=== PATIENT | male | born 1990 | race Caucasian/White ===

== ENCOUNTER → 2017-07-01 | Emergency (ER) | payer OTHER ==
[~2017-07-01] VITALS: Ht 177.8 cm; Wt 136.1 kg
[~2017-07-01] MED LIST: ZITHROMAX1 G/PKT
== END | disposition home or self-care (01) ==
LOC: ER 12:03
DX: S13.4XXA Sprain of ligaments of cervical spine, initial encounter (principal); V49.9XXA Car occupant (driver) (passenger) injured in unspecified traffic accident, initial encounter; Y93.89 Activity, other specified; Y92.488 Other paved roadways as the place of occurrence of the external cause; Y99.8 Other external cause status

== ENCOUNTER 2021-06-20 00:28 | Emergency (ER) | payer OTHER ==
[~2021-06-20] VITALS: Ht 177.8 cm; Wt 124.7 kg
[2021-06-20] MEDS ORDERED: ZOFRAN8 MG PO ×2 (05:11→05:12)
[2021-06-20] MEDS ORDERED: PEPCID40 MG PO (05:11)
== END 2021-06-20 05:18 ==
LOC: ER 00:28
DX: K29.70 Gastritis, unspecified, without bleeding (principal); R50.9 Fever, unspecified; Z20.822 Contact with and (suspected) exposure to COVID-19